=== PATIENT | male | born 2000 | race Caucasian/White ===

== ENCOUNTER → 2024-09-26 16:41 | Outpatient (REF) | payer OTHER, SELFPAY ==
[2024-09-26 17:36] LABS: ALT (SGPT) 16 U/L (0-50); AST (SGOT) 21 U/L (17-59); Albumin 4.8 g/dl (3.5-5.0); Alkaline Phosphatase 55 U/L (38-126); Blood Urea Nitrogen 19 mg/dl (9-20); Carbon Dioxide 27 mmol/L (22-30); Chloride 107 mmol/L (98-107); Glucose 57 mg/dl (70-99); Potassium 4.4 mmol/L (3.5-5.1); Sodium 143 mmol/L (135-145); Total Protein 7.7 g/dl (6.3-8.2); eGFR > 60.00
== END ==
LOC: REG 16:41
PROVIDERS: ATTENDING PHYSICIAN Internal Medicine Nephrology; REFERRING PHYSICIAN Internal Medicine Endocrinology, Diabetes & Metabolism
DX: R80.1 Persistent proteinuria, unspecified (principal)
CPT/HCPCS: 36415; 80053

== ENCOUNTER → 2024-10-03 10:42 | Outpatient (REF) | payer OTHER, SELFPAY ==
[2024-10-03 12:23] LABS: 24 Hour Urine Total Volume 900 ml; Urine Protein < 5 mg/dl (0-12)
== END ==
LOC: REG 10:42
PROVIDERS: ATTENDING PHYSICIAN Internal Medicine Nephrology
DX: R80.1 Persistent proteinuria, unspecified (principal)
CPT/HCPCS: 81050; 84156